=== PATIENT | female | born 1985 | race Caucasian/White ===

== ENCOUNTER 2016-10-26 22:09 | Emergency (ER) | payer OTHER ==
[~2016-10-26 22:09] MED LIST: ALPR.25T PO; HYDR-4003 PO; ONDA8TAB10 PO; REM15 PO; SERT50TA9 PO
[2016-10-26 22:12] VITALS: BP 157/96; PULSE 115; RESP 24; O2SAT 100
--- NOTE | 2016-10-26 22:23 | ED.REPORT ---
HPI-Psychiatric Illness Date of Service Oct 26, 2016 ED Provider: Giacomo Fish MD Pt is a 31 year old female presenting to the ED via EMS after her found her sitting in the garage with a knife intending to harm herself. Pt arrives to the ED sedated by ketamine administered my medics. Her reports that she drank alcohol tonight. History limited secondary to patient condition. Nursing Notes Stated Complaint: SUICIDE ATTEMPT Chief Complaint: Psychiatric Complaint Nursing Notes Reviewed: Yes Allergies: Coded Allergies: amoxicillin (Verified Allergy, Intermediate, hives, 11/27/12) Scheduled Alprazolam-Expunged Drug, Do Not Renew! (Alprazolam-Expunged Drug, Do Not Renew! ) 0.25 Mg Tablet 0.5 MG PO TID Sertraline-Expunged Drug, Choose New Med! (Sertraline-Expunged Drug, Choose New Med!) 50 Mg Tablet 100 MG PO DAILY Sertraline-Expunged Drug, Choose New Med! (Sertraline-Expunged Drug, Choose New Med!) 50 Mg Tablet 50 MG PO DAILY PT TAKES TOTAL 150MG/DAY Scheduled PRN Hydrocodone-Acetaminophen 5-325 mg (Hydrocodone-Acetaminophen 5-325 mg) 1 Each Tablet 1-2 TABLET PO Q4H PRN PRN For Pain Mirtazapine-Expunged Drug, Do Not Renew! (Remeron-Expunged Drug, Do Not Renew!) 15 Mg Tablet 15 MG PO HSPMR PRN PRN Ondansetron ODT (Ondansetron ODT) 8 Mg Tab.rapdis 8 MG PO Q4H PRN PRN For Nausea General Time Seen by MD: 22:21 Chief Complaint Suicidal attempt Hx Obtained From: EMS Arrived By: Ambulance Onset Occurred: Just prior to arrival Context of Onset: Intoxicated, alcohol Symptom Duration: Since onset Progression Since Onset: Constant Recent Healthcare: No recent doctor visit, No recent hospitalization Similar Sx Previous: No Risk-Psychiatric Illness Suicide Risk Stratification Suicide Risk Factors - Adult: : Alcohol use RF Statements: Risk factors reviewed Past Medical History Past Medical History unknown Past Surgical History Reports: , Cholecystectomy Smoking History Former Smoker Social History Alcohol Use: 1-3 per week Drug Use: Denies drug use Other Social History: Local resident Ambulatory Status Independent Review of Systems Unable to Obtain ROS Patient condition Physical Exam Initial Vital Signs Vital Signs (First) Date Time Temp Pulse Resp B/P Pulse Ox O2 Delivery O2 Flow Rate FiO2 10/26/16 22:12 36.8 115 24 157/96 100 10/27/16 02:47 Nasal Cannula 2 Initial VS: Reviewed, Vital signs abnormal Head / Eyes: Atraumatic, Normocephalic, PERRL ENT: Mucous membranes moist, Conjunctiva normal, No scleral icterus Neck: Supple, Non-tender, Full range of motion Respiratory: Breath sounds normal, Clear to auscultation, No respiratory distress Cardiovascular: Regular rate & rhythm, Heart sounds normal, Intact distal pulses Abdomen / GI: Soft, Non-tender, No guarding, No rebound, No distention Extremities: Vascular intact, Neuro intact, No swelling, No tenderness Skin: Warm, Dry, No cyanosis General/Constitutional: No acute distress Pt is currenly snoring and not arousable. Skin: Color NL, No rash, Warm, Dry 2 longitudinal and 1 transverse superficial cuts to the left volar wrist. 4 old transfer scars on the medial thighs Interpretation & Diagnostics Lab Results Interpretation Result Diagram: 10/26/16222910/26/162229 Test 10/26/16 22:30 10/26/16 23:48 White Blood Count 12.6th/mm3 (3.8-10.1) Red Blood Count 4.79mil/mm3 (3.90-5.20) Hemoglobin 14.5g/dL (12.0-15.6) Hematocrit 43.4% (35.0-46.0) Mean Corpuscular Volume 90.6fL (81-100) Mean Corpuscular Hemoglobin 30.3pg (27.0-35.0) Mean Corpuscular Hemoglobin Concent 33.4% (32.0-37.0) Red Cell Distribution Width 14.0% (12.3-15.4) Platelet Count 265bil/L (150-400) Sodium Level 141mEq/L (134-144) Potassium Level 4.3mEq/L (3.5-5.2) Chloride Level 102mEq/L (97-108) Carbon Dioxide Level 20mmol/L (18-29) Blood Urea Nitrogen 12mg/dL (6-20) Creatinine 0.71mg/dL (0.57-1.00) Estimat Glomerular Filtration Rate 137mL/min (>59) Glucose Level 100mg/dL (60-99) Calcium Level 9.1mg/dL (8.5-10.1) Total Bilirubin 0.3mg/dL (0.0-1.2) Aspartate Amino Transf (AST/SGOT) 51U/L (0-50) Alanine Aminotransferase (ALT/SGPT) 61U/L (0-32) Alkaline Phosphatase 95U/L (25-150) Total Protein 7.9g/dL (6.4-8.4) Albumin 4.5g/dL (3.4-5.0) Salicylates Level < 3.0ug/mL (30-250) Acetaminophen Level < 15.0ug/mL Rx (10-25) Alcohols 297mg/dL (0-10) Hold Urine Received (Received) Lab values outside NL range: no clinical significance. Lab Results Interpretation: White blood count Re-Eval/Medical Decision Med Decision/Clinical Course 31-year-old female who was cutting her wrists with a knife when her intervened. She has been drinking alcohol. She required ketamine in the field because of agitation and combativeness. She is currently sleeping/sobering. Her care is being turned over at change of shift to Dr. Dash. Re-Evaluation/Progress : Time of Eval: 01:55 Patient Status: Condition improved Re-Evaluation/Progress Note: Pt sleeping soundly. Counseled Regarding: Diagnosis, Lab results, Need for follow-up, When/why to return to ED Discharge & Departure Shift Change Sign-Out Patient Care Transferred: Yes Discussed Complaint(s): Yes Laboratory Evaluation: Lab evaluation discussed Response to Therapy: Unchanged Disposition: Home Discharge Condition All VS Reviewed: Yes Condition: Improved Referrals: NOPCP (PCP) Care Transferred to: Care transferred to Dr. Dash Care Transferred at: 06:00 Roxy Attestation Portions of this note were transcribed by Lorrie Bo. I, Dr. Fish personally performed the history, physical exam and medical decision-making; I reviewed and confirmed the accuracy of the information in the transcribed note. Signed by: Roxy Chiang, 10/26/2016. Giacomo Fish MD Oct 26, 2016 22:23 LORRIE BO Oct 26, 2016 22:49
[2016-10-26 22:33] LABS: Mean Corpuscular Hemoglobin 30.3 pg (27.0-35.0); Mean Corpuscular Volume 90.6 fL (81-100)
[2016-10-27] VITALS (7 sets, daily range): BP systolic 105–149; BP diastolic 52–106; PULSE 75–95; RESP 16–19; O2SAT 94–100
[2016-10-27] MEDS ORDERED: Ondansetron 2 mg/mL 2 mL Inj IVPUSH PRN (00:10)
[2016-10-27] MEDS ORDERED: 0.9% Sodium Chloride 1,000 ML IV ONE (06:55)
[2016-10-27] MEDS ORDERED: SERT100T PO (13:54)
[2016-10-27] MEDS ORDERED: LORA1TAB PO (13:54)
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
== END 2016-10-27 14:13 | disposition home or self-care (01) ==
LOC: SED 22:09 → EDBD 22:09 → SED 10-27 14:13
DX: S61.512A Laceration without foreign body of left wrist, initial encounter (principal); F32.9 Major depressive disorder, single episode, unspecified; R45.851 Suicidal ideations; O90.6 Postpartum mood disturbance; X78.1XXA Intentional self-harm by knife, initial encounter; Y93.89 Activity, other specified; Y99.8 Other external cause status; Y92.015 Private garage of single-family (private) house as the place of occurrence of the external cause; F10.239 Alcohol dependence with withdrawal, unspecified; I10 Essential (primary) hypertension; R11.0 Nausea; Z87.891 Personal history of nicotine dependence; Z90.49 Acquired absence of other specified parts of digestive tract; Z88.0 Allergy status to penicillin
CPT/HCPCS: 36415; 80053; 81025; 82948; 85027; 90791; 96361; 96374; 99285; G0480; J2405; J7030